=== PATIENT | male | born 1955 | race African-American/Black ===

== ENCOUNTER 2020-08-22 17:47 | Emergency (ER) | payer OTHER ==
[~2020-08-22] VITALS: Ht 180.3 cm; Wt 82.6 kg
[2020-08-22 18:02] VITALS: BP 146/98
== END 2020-08-22 18:16 | disposition home or self-care (01) ==
LOC: EDUNIT# 17:47 → ER 17:47 → EDBD 17:47 → ER 18:16
DX: R56.9 Unspecified convulsions (principal)

== ENCOUNTER 2021-05-12 16:39 | Emergency (ER) | payer OTHER ==
[~2021-05-12] VITALS: Ht 180.3 cm; Wt 79.4 kg
[2021-05-12 16:39] VITALS: BP 137/88
== END 2021-05-12 17:34 | disposition left against medical advice (07) ==
LOC: ER 16:39
DX: S09.90XA Unspecified injury of head, initial encounter (principal); Z53.21 Procedure and treatment not carried out due to patient leaving prior to being seen by health care provider; X58.XXXA Exposure to other specified factors, initial encounter; Y93.89 Activity, other specified; Y92.89 Other specified places as the place of occurrence of the external cause; Y99.8 Other external cause status